=== PATIENT | male | born 1975 | race Caucasian/White ===

== ENCOUNTER 2023-02-19 18:11 | Emergency (ER) | payer OTHER, SELFPAY ==
[2023-02-19 18:53] VITALS: BP 101/65; PULSE 72; RESP 18; TEMP 36.8; O2SAT 98; BMI 22.6
--- NOTE | 2023-02-19 18:58 | PC.NURSE ---
Right eye sclera slightly red. Patient reports having something flew in my eye and I can't get it out . No drainage to eye. 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
[2023-02-19 21:06] VITALS: BP 124/52; PULSE 70; RESP 18; O2SAT 98
--- NOTE | 2023-02-19 21:11 | PC.NURSE ---
Patient to ED with C claim after getting something in his eye while at work. 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 He tried flushing it out, also tried using a magnet incase it was a piece of metal, but is still feeling irritation in his right eye. No specific visual disturbance.
--- NOTE | 2023-02-19 21:14 | ED_ITS ---
HPI - Eye Problem General Chief complaint: Eye Problems Stated complaint: BWC - Foreign Body in Eye Time Seen by Provider: 02/19/23 19:34 Source: patient Mode of arrival: walk-in Limitations: no limitations History of Present Illness HPI Narrative: This 48-year-old male presents for evaluation of a foreign body in his right eye. The patient states around 1:30 PM he was at work and felt something fly into his right eye. He thought he could get it out of his eye himself but was unsuccessful. He does not wear contact lenses. He denies any change in his vision.No additional injuries or complaints. Related Data Allergies Allergy/AdvReac Type Severity Reaction Status Date / Time No Known Drug Allergies Allergy Verified 02/19/23 18:52 Review of Systems ROS Status of ROS 10 or more systems reviewed and unremark able except as noted in history and below PFSH PFS Social History Smoking status: Former smoker Exam Narrative Exam Narrative: Nurses note and vital signs reviewed and patient is not hypoxic. General: The patient appears well and in no apparent distress. Patient is resting comfortably on cart. Skin: Warm, dry, no pallor noted. There is no rash noted. Head: Normocephalic, atraumatic Eye: Normal conjunctiva, small visible foreign body at approximately 2:00 overlying the right iris. Mild conjunctival injection is noted Ears, Nose, Mouth, and Throat: oral mucosa is moist. Nares patent. Mouth without vesicles. Ear canals patent. Tm's without Erythema Cardiovascular: Regular Rate and Rhythm Respiratory: Patient is in no distress, no accessory muscle use, lungs are clear to auscultation, no wheezing, rales or rhonchi Neurological: A&O x4, normal speech Psychiatric: Cooperative Constitutional Vital Signs, click to edit/add: Last Vital Signs Temp 98.3 F 02/19/23 18:53 Pulse 70 02/19/23 21:06 Resp 18 02/19/23 21:06 BP 124/52 02/19/23 21:06 Pulse Ox 98 02/19/23 21:06 O2 Del Method Room Air 02/19/23 18:53 Course Vital Signs Vital signs: Vital Signs Temperature 98.3 F 02/19/23 18:53 Pulse Rate 72 02/19/23 18:53 Respiratory Rate 18 02/19/23 18:53 Blood Pressure 101/65 02/19/23 18:53 Pulse Oximetry 98 02/19/23 18:53 Oxygen Delivery Method Room Air 02/19/23 18:53 Temperature 98.3 F 02/19/23 18:53 Pulse Rate 70 02/19/23 21:06 Respiratory Rate 18 02/19/23 21:06 Blood Pressure 124/52 02/19/23 21:06 Pulse Oximetry 98 02/19/23 21:06 Oxygen Delivery Method Room Air 02/19/23 18:53 MDM - Eye Problem MDM Narrative Medical decision making narrative: This 48-year-old male presents for evaluation of a foreign body in his right eye. Patient was at work around 1:30 PM when he felt something fly into his eye and has been unsuccessful at removing it since that time. His vision is unchanged. He does wear corrective lenses but no contact lenses. He had a small visible foreign body in the cornea at approximately 2 o'clock. This was removed after instillation of tetracaine into the right eye with a cotton swab. The foreign body appears to have been completely removed. He was then medicated with erythromycin ophthalmic and will be discharged home with the ophthalmic medication to use for the next 3-5 days. He declined a tetanus shot. Discharge Plan Discharge Chief Complaint: Eye Problems Clinical Impression: Corneal foreign body Patient Disposition: Home, Self-Care Time of Disposition Decision: 21:18 Condition: Good Instructions: Eye Foreign Body (ED) Stand Alone Forms: Portal Instructions Referrals: Physician,Non-Staff, MD [Primary Care Provider] - 1 week Discharge Date/Time: 02/19/23 21:32 Procedures ED Procedure Instructions Procedures Procedures: Procedure note: Foreign body removal right eye; tetracaine was instilled into the right eye and the foreign body was removed with a cotton tipped applicator. It was then irrigated with 10 mL of normal saline. On reevaluation there is no visible foreign body but there is a small ulcer where it was removed. The patient was medicated with erythromycin ophthalmic ointment and will be discharged home with the ointment
[2023-02-19] MEDS: FLUORESCEIN SODIUM 1 MG STRIP OP (21:18)
[2023-02-19] MEDS: TETRACAINE HCL 0.5% OP SOL 80 DROP/4 ML BOTTLE OP (21:18)
--- NOTE | 2023-02-19 21:21 | PC.NURSE ---
Patient is here with [facility] claim but his company is not in our database. He states that he does not need any drug or alcohol testing. I asked him if he was sure, or if he needed to contact a paperhanger supervisor to make sure, and he says he is confident that he does not need any. This RN confirmed with lab that it was protocol to take his word since his company is not in our database and was told that it is.
[2023-02-19] MEDS: ERYTHROMYCIN OP OINT 0.5% 1 GM TUBE OP (21:27)
== END 2023-02-19 21:32 | disposition home or self-care (01) ==
PROVIDERS: Emergency Provider Emergency Medicine
DX: T15.01XA Foreign body in cornea, right eye, initial encounter (principal); W44.9XXA Unspecified foreign body entering into or through a natural orifice, initial encounter; Z87.891 Personal history of nicotine dependence
CPT/HCPCS: 99284